=== PATIENT | female | born 1995 | race Caucasian/White ===

== ENCOUNTER 2017-01-07 01:34 | Emergency (ER) | payer OTHER ==
--- NOTE | 2017-01-07 02:22 | ED ---
Lucy Sharif Thomas, scribed for Aquiles Hebert MD on 01/07/17 at 0148 . Substance Abuse/Use - HPI Summary HPI Summary: The pt is a 22 y/o F [employer]IB [employer] who is intoxicated with ETOH. She reports drinking mixed drinks. She denies that she becomes this intoxicated very often. She additionally c/o vomiting. She denies any pain at this time. PMHx: previously healthy. PSHx: none. SHx: no smoking, alcohol use, no illicit drug use. She is a senior at [employer]. - History Of Current Complaint Chief Complaint: EDSubstanceAbuse Stated Complaint: ALCOHOL CONSUMPTION Time Seen by Provider: 01/07/17 01:42 Hx Obtained From: Patient Ingestion History: Type/Name Of Drug - ETOH, Amount Ingested - Unknown amount - - mixed drinks Aggravating Factor(s): Nothing Alleviating Factor(s): Nothing Associated Signs And Symptoms: Vomiting - Allergies/Home Medications Allergies/Adverse Reactions: Allergies Allergy/AdvReac Type Severity Reaction Status Date / Time No Known Allergies Allergy Verified 01/07/17 01:45 PMH/Surg Hx/FS Hx/Imm Hx Previously Healthy: Yes Cardiovascular History: Denies: Hx Congestive Heart Failure Respiratory History: Denies: Hx Chronic Obstructive Pulmonary Disease (COPD) - Surgical History Surgery Procedure, Year, and Place: None Infectious Disease History: No Infectious Disease History: Denies: Traveled Outside the [place] in Last 30 Days - Family History Known Family History: Positive: Other - When asked her FHx, the patient responds "nothing that I know of" - Social History Alcohol Use: unknown frequency Substance Use Type: Reports: None Smoking Status (MU): Never Smoked Tobacco Review of Systems Negative: Fever Positive: Vomiting Positive: Other - POS: ETOH intoxication All Other Systems Reviewed And Are Negative: Yes Physical Exam Triage Information Reviewed: Yes Vital Signs On Initial Exam: Initial Vitals Temp Pulse Resp BP Pulse Ox 97.5 F 84 16 105/72 100 01/07/17 01:38 01/07/17 01:38 01/07/17 01:38 01/07/17 01:38 01/07/17 01:38 Vital Signs Reviewed: Yes Appearance: Positive: Well-Appearing, No Pain Distress Skin: Positive: Warm Head/Face: Positive: Normal Head/Face Inspection Eyes: Positive: KIMMIE ENT: Positive: Hearing grossly normal Neck: Positive: Supple Respiratory/Lung Sounds: Positive: Breath Sounds Present Cardiovascular: Positive: RRR Abdomen Description: Positive: Nontender, Soft Bowel Sounds: Positive: Present Musculoskeletal: Positive: Strength/ROM Intact Neurological: Positive: Alert, Oriented to Person Place, Time - Kevin Coma Scale Coma Scale Total: 14 Diagnostics - Vital Signs Vital Signs Temp Pulse Resp BP Pulse Ox 01/07/17 01:38 97.5 F 84 16 105/72 100 - Laboratory Lab Statement: Any lab studies that have been ordered have been reviewed, and results considered in the medical decision making process. Course/Dx - Course Assessment/Plan: The pt is a 22 y/o F [employer]IB [employer] who is intoxicated with ETOH. She reports drinking mixed drinks. She denies that she becomes this intoxicated very often. She additionally c/o vomiting. She denies any pain at this time. PMHx: previously healthy. PSHx: none. SHx: no smoking, alcohol use, no illicit drug use. She is a senior at [employer]. Blood work shows serum alcohol 215. test is negative. Patient is diagnosed with alcohol intoxication. Patient will be discharged home with follow up by PCP. Patient is agreeable to this plan. - Diagnoses Provider Diagnoses: Alcohol intoxication Discharge - Discharge Plan Condition: Stable Disposition: HOME Patient Education Materials: Alcohol Intoxication (ED) Referrals: [facility] [Primary Care Provider] - 3 Days The documentation as recorded by the Lucy mcnair Thomas accurately reflects the service I personally performed and the decisions made by me, Aquiles Hebert MD.
[2017-01-07 02:58] LABS: Alcohol 215 mg/dL (<10)
[2017-01-07 06:28] VITALS: BP 101/56
== END 2017-01-07 06:28 | disposition home or self-care (01) ==
LOC: ED 01:34
DX: F10.129 Alcohol abuse with intoxication, unspecified (principal); Y90.7 Blood alcohol level of 200-239 mg/100 ml; R11.10 Vomiting, unspecified; Z32.02 Encounter for pregnancy test, result negative
CPT/HCPCS: 36415; 80320; 84702; 99284; G0480